=== PATIENT | female | born 1940 | race Two or more races ===

== ENCOUNTER 2025-05-15 08:02 | Emergency (ER) | payer MEDICARE, MEDICAID, OTHER ==
[~2025-05-15] VITALS: Ht 160 cm; Wt 81.0 kg
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
--- NOTE | 2025-05-15 08:47 | DVH ---
CT HEAD WITHOUT CONTRAST Indication: [facility] EXAM DATE: 05/15/2025 08:13 AM COMPARISON: None TECHNIQUE: CT of the head without intravenous contrast. RADIATION DOSE: CTDIvol: 50.87 mGy, DLP: 815.64 mGy*cm FINDINGS: There is no intracranial hemorrhage. There is no extra-axial fluid, mass, mass effect or midline shif t. The ventricles are midline and normal in size. Basilar cisterns are patent. Mild periventricular a nd subcortical white matter chronic microvascular ischemic changes. The paranasal sinuses and mastoids are well-pneumatized. Imaged portion of the orbits are unremarkabl e. IMPRESSION: 1. No intracranial hemorrhage or mass effect. 2. Mild chronic microvascular ischemic changes.
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
--- NOTE | 2025-05-15 09:35 | DVH ---
CT CHEST WITHOUT CONTRAST INDICATION: per rads better evaluate xray findings EXAM DATE: 05/15/2025 09:00 AM COMPARISON: None RADIATION DOSE: CTDIvol: 13.41 mGy, DLP: 420.19 mGy*cm PROCEDURE: Helical CT images were obtained of the chest without intravenous contrast. Sagittal and c oronal reconstructions are provided. ADDITIONAL IMAGES / REFORMATS: None All CT scans at this medical facility are performed using dose modulation techniques as appropriate t o a performed exam including the following: Automated exposure control was utilized; adjustment of th e MA and/or KV according to patient size; and use of iterative reconstruction technique. FINDINGS: Bones: Scattered degenerative changes are noted. Old left-sided rib fractures are seen. Visualized Abdomen: There is a stomach containing hiatal hernia. Chest Wall: Normal. Soft tissues: Normal. Mediastinum: Normal. Heart: Coronary artery calcifications are noted. Vessels: Normal. Lymph Nodes: Normal. Pleura: Normal. Airways: Normal. Lung: Right middle lobe atelectasis is seen. Complex thick walled cystic lesion in the right upper lo be. Other: None IMPRESSION: Right middle lobe atelectasis is seen. Complex thick walled cystic lesion in the right upper lobe. Th is could be post infectious in nature. Neoplasm not entirely excluded.
[2025-05-15] MEDS: ACETAMINOPHEN 325 MG TAB PO ONE (09:52)
[2025-05-15 11:08] VITALS: BP 138/84; PULSE 74; RESP 16; TEMP 98.1; O2SAT 96
== END 2025-05-15 11:11 | disposition home or self-care (01) ==
LOC: ER 08:02 → EDBD 08:02 → ER 11:11
DX: R93.89 Abnormal findings on diagnostic imaging of other specified body structures (principal); V43.62XA Car passenger injured in collision with other type car in traffic accident, initial encounter; Y93.89 Activity, other specified; Y92.410 Unspecified street and highway as the place of occurrence of the external cause; Y99.8 Other external cause status
CPT/HCPCS: 70450; 71046; 71250